=== PATIENT | female | born 2000 | race Caucasian/White ===

== ENCOUNTER 2020-06-04 13:32 | Emergency (ER) | payer OTHER ==
--- NOTE | 2020-06-04 14:18 | EDM.PDOC ---
ED HPI GENERAL MEDICAL PROBLEM - General Chief Complaint: Flank Pain Stated Complaint: PAIN ON LEFT FLANK SIDE Time Seen by Provider: 06/04/20 14:00 - History of Present Illness INITIAL COMMENTS - FREE TEXT/NARRATIVE: 20-year-old female no major significant past medical history presenting with on and off severe left flank pain that she says has been going on for the last 2 months. She initially thought it was menstrual cramps but the pain came again today and she has not had a menstrual cycle in the last 2 weeks. Patient does not have a history of abnormal menses her last menstrual cycle 2 weeks ago was normal for her. No fevers no chills small amount of hematuria today but no vaginal bleeding or discharge. No dysuria. No nausea or vomiting no frontal abdominal pain no radiation across the midline. No fevers no chills patient otherwise feels well and is asymptomatic at this time. Groin Pain Score (Numeric/FACES): 7 - Related Data Allergies Allergy/AdvReac Type Severity Reaction Status Date / Time Penicillins Allergy Airway Verified 06/04/20 14:07 Tightness Home Meds: Home Meds ClonazePAM [KlonoPIN] 0.5 mg PO DAILY 06/04/20 [History] Sulfamethoxazole/Trimethoprim [Bactrim Ds Tablet] 1 each PO BID 5 Days #10 tablet 06/04/20 [Rx] Venlafaxine [Effexor XR] 75 mg PO DAILY 06/04/20 [History] traZODone 50 mg PO DAILY 06/04/20 [History] Past Medical History - Past Health History Medical/Surgical History: Denies Medical/Surgical History Psychiatric History: Reports: Anxiety, Depression - Infectious Disease History Infectious Disease History: Reports: None ED ROS GENERAL - Review of Systems Review Of Systems: See Below Free Text/Narrative/Comment: General: No fever. Skin: No rash. Eyes: No vision problems. ENT: No sore throat. Neck: No neck stiffness. Respiratory: No shortness of breath. Cardiac: No chest pain. Gastrointestinal: No nausea, vomiting or abdominal pain. : Per HPI Musculoskeletal: No myalgias/arthralgias. Neurologic: No headache. ED EXAM, GENERAL - Physical Exam Exam: See Below Free Text/Narrative:: General Appearance: No acute distress, appears comfortable Skin: No rash HEENT: Normocephalic/atraumatic, sclera anicteric, mucous membranes moist Neck: Normal range of motion Chest and Lungs: Bilateral breath sounds, clear to auscultation Cardiovascular: Regular rate and rhythm, no murmur Abdomen: Soft, non-tender Back: Normal Musculoskeletal: No edema or tenderness Neurologic: Awake, alert, no obvious deficits, moving all extremities Psychiatric: Appropriate, cooperative Course - Vital Signs Last Recorded V/S: Last Vital Signs Temp 97 F 06/04/20 14:08 Pulse 54 L 06/04/20 14:30 Resp 15 06/04/20 14:30 BP 103/68 06/04/20 14:30 Pulse Ox 95 06/04/20 14:30 - Orders/Labs/Meds Orders: Active Orders 24 hr Category Date Time Status CULTURE URINE [RM] Stat Lab 06/04/20 14:02 Received Labs: Laboratory Tests 06/04/20 06/04/20 06/04/20 Range/Units 14:02 14:02 15:04 WBC 10.82 (4.0-11.0) K/uL RBC 4.63 (4.30-5.90) M/uL Hgb 14.0 (12.0-16.0) g/dL Hct 41.2 (36.0-46.0) % MCV 89.0 (80.0-98.0) fL MCH 30.2 (27.0-32.0) pg MCHC 34.0 (31.0-37.0) g/dL RDW Std Deviation 40.5 (28.0-62.0) fl RDW Coeff of Rahel 13 (11.0-15.0) % Plt Count 285 (150-400) K/uL MPV 10.60 (7.40-12.00) fL Neut % (Auto) 56.5 (48.0-80.0) % Lymph % (Auto) 30.2 (16.0-40.0) % Mayes % (Auto) 8.5 (0.0-15.0) % Eos % (Auto) 4.6 (0.0-7.0) % Baso % (Auto) 0.2 (0.0-1.5) % Neut # (Auto) 6.1 H (1.4-5.7) K/uL Lymph # (Auto) 3.3 H (0.6-2.4) K/uL Mayes # (Auto) 0.9 H (0.0-0.8) K/uL Eos # (Auto) 0.5 (0.0-0.7) K/uL Baso # (Auto) 0.0 (0.0-0.1) K/uL Nucleated RBC % 0.0 /100WBC Nucleated RBCs # 0 K/uL Sodium (136-145) mmol/L Potassium (3.5-5.1) mmol/L Chloride (98-107) mmol/L Carbon Dioxide (21.0-32.0) mmol/L BUN (7.0-18.0) mg/dL Creatinine (0.6-1.0) mg/dL Est Cr Clr Drug Dosing mL/min Estimated GFR (MDRD) ml/min Glucose (74-106) mg/dL Calcium (8.5-10.1) mg/dL Total Bilirubin (0.2-1.0) mg/dL AST (15-37) IU/L ALT (14-63) IU/L Alkaline Phosphatase (46-116) U/L Total Protein (6.4-8.2) g/dL Albumin (3.4-5.0) g/dL Globulin (2.6-4.0) g/dL Albumin/Globulin Ratio (0.9-1.6) Urine Color YELLOW Urine Appearance SLT CLOUDY Urine pH 6.0 (5.0-8.0) Ur Specific [facility] >= 1.030 (1.001-1.035) Urine Protein NEGATIVE (NEGATIVE) mg/dL Urine Glucose (UA) NEGATIVE (NEGATIVE) mg/dL Urine Ketones NEGATIVE (NEGATIVE) mg/dL Urine Occult Blood TRACE-INTACT H (NEGATIVE) Urine Nitrite NEGATIVE (NEGATIVE) Urine Bilirubin NEGATIVE (NEGATIVE) Urine Urobilinogen 0.2 (<2.0) EU/dL Ur Leukocyte Esterase MODERATE H (NEGATIVE) Urine RBC 1-2 (0-2/HPF) Urine WBC 70-80 (0-5/HPF) Ur Epithelial Cells FEW (NONE-FEW) Urine Bacteria 1+ H (NEGATIVE) Urine HCG, Qual NEGATIVE (NEGATIVE) 06/04/20 Range/Units 15:04 WBC (4.0-11.0) K/uL RBC (4.30-5.90) M/uL Hgb (12.0-16.0) g/dL Hct (36.0-46.0) % MCV (80.0-98.0) fL MCH (27.0-32.0) pg MCHC (31.0-37.0) g/dL RDW Std Deviation (28.0-62.0) fl RDW Coeff of Rahel (11.0-15.0) % Plt Count (150-400) K/uL MPV (7.40-12.00) fL Neut % (Auto) (48.0-80.0) % Lymph % (Auto) (16.0-40.0) % Mayes % (Auto) (0.0-15.0) % Eos % (Auto) (0.0-7.0) % Baso % (Auto) (0.0-1.5) % Neut # (Auto) (1.4-5.7) K/uL Lymph # (Auto) (0.6-2.4) K/uL Mayes # (Auto) (0.0-0.8) K/uL Eos # (Auto) (0.0-0.7) K/uL Baso # (Auto) (0.0-0.1) K/uL Nucleated RBC % /100WBC Nucleated RBCs # K/uL Sodium 142 (136-145) mmol/L Potassium 4.2 (3.5-5.1) mmol/L Chloride 107 (98-107) mmol/L Carbon Dioxide 29.0 (21.0-32.0) mmol/L BUN 8 (7.0-18.0) mg/dL Creatinine 0.7 (0.6-1.0) mg/dL Est Cr Clr Drug Dosing 92.08 mL/min Estimated GFR (MDRD) > 60.0 ml/min Glucose 98 (74-106) mg/dL Calcium 8.6 (8.5-10.1) mg/dL Total Bilirubin 0.4 (0.2-1.0) mg/dL AST 11 L (15-37) IU/L ALT 17 (14-63) IU/L Alkaline Phosphatase 94 (46-116) U/L Total Protein 7.4 (6.4-8.2) g/dL Albumin 3.7 (3.4-5.0) g/dL Globulin 3.7 (2.6-4.0) g/dL Albumin/Globulin Ratio 1.0 (0.9-1.6) Urine Color Urine Appearance Urine pH (5.0-8.0) Ur Specific [facility] (1.001-1.035) Urine Protein (NEGATIVE) mg/dL Urine Glucose (UA) (NEGATIVE) mg/dL Urine Ketones (NEGATIVE) mg/dL Urine Occult Blood (NEGATIVE) Urine Nitrite (NEGATIVE) Urine Bilirubin (NEGATIVE) Urine Urobilinogen (<2.0) EU/dL Ur Leukocyte Esterase (NEGATIVE) Urine RBC (0-2/HPF) Urine WBC (0-5/HPF) Ur Epithelial Cells (NONE-FEW) Urine Bacteria (NEGATIVE) Urine HCG, Qual (NEGATIVE) Departure - Departure Time of Disposition: 15:49 Disposition: Home, Self-Care 01 Condition: Good Clinical Impression: Flank pain, UTI (urinary tract infection) - Discharge Information *PRESCRIPTION DRUG MONITORING PROGRAM REVIEWED*: Not Applicable *COPY OF PRESCRIPTION DRUG MONITORING REPORT IN PATIENT SUKHI: Not Applicable Prescriptions: Sulfamethoxazole/Trimethoprim [Bactrim Ds Tablet] 1 each PO BID 5 Days #10 tablet Instructions: Flank Pain, Adult, Urinary Tract Infection, Adult Forms: ED Department Discharge Additional Instructions: Please be sure you can pleat the entire course of antibiotic. You can take Tylenol or ibuprofen as you need to for the flank pain. If you have severe pain that does not go away develop a fever or any other new symptoms that concern you, then please return to the ER. Otherwise please follow-up in the primary care clinic as scheduled. The following information is given to patients seen in the emergency department who are being discharged to home. This information is to outline your options for follow-up care. We provide all patients seen in our emergency department with a follow-up referral. The need for follow-up, as well as the timing and circumstances, are variable depending upon the specifics of your emergency department visit. If you don't have a primary care physician on staff, we will provide you with a referral. We always advise you to contact your personal physician following an emergency department visit to inform them of the circumstance of the visit and for follow-up with them and/or the need for any referrals to a consulting specialist. The emergency department will also refer you to a specialist when appropriate. This referral assures that you have the opportunity for follow-up care with a specialist. All of these measure are taken in an effort to provide you with optimal care, which includes your follow-up. Under all circumstances we always encourage you to contact your private physician who remains a resource for coordinating your care. When calling for follow-up care, please make the office aware that this follow-up is from your recent emergency room visit. If for any reason you are refused follow-up, please contact the [facility] Emergency Department at and asked to speak to the emergency department charge nurse. Sepsis Event Note (ED) - Evaluation Sepsis Screening Result: No Definite Risk - Focused Exam Vital Signs: Vital Signs Temp Pulse Resp BP Pulse Ox 06/04/20 14:30 54 L 15 103/68 95 06/04/20 14:08 97 F 60 16 94/48 L 99 - Assessment/Plan Assessment:: 20-year-old female presenting with signs and symptoms most consistent with ovarian cyst could also consider renal colic less likely UTI no anterior symptoms that would suggest diverticulitis or appendicitis no fevers or chills. Abdomen exam is benign. Given constellation of symptoms and differential diagnosis CBC CMP urinalysis urine and CT abdomen pelvis without contrast been ordered. Patient comfortable at this time I do not have concern for active ovarian torsion. Ectopic considered but again patient with out pain at this time and urine pending. Further eval and final disposition pending results of above. 1550: Patient's pain currently 6 out of 10. test negative will give a dose of Toradol. Patient CT scan is unremarkable. Patient does have a urinary tract infection given her allergy profile will treat with 5 days of Bactrim. We discussed that I do not believe the urinary tract infection explains the prolonged course of symptoms. Patient has a follow-up appointment with her primary care doctor scheduled for 4 days from now. Patient request a note for work we will give her off today and tomorrow. Patient will follow up with her primary care doctor. Return precaution discussed and understood.
--- NOTE | 2020-06-04 15:20 | CT ---
HISTORY: Left flank pain. TECHNIQUE: Noncontrast CT of the abdomen and pelvis. COMPARISON: No prior. FINDINGS: No focal liver parenchymal abnormality. Gallbladder does not appear excessively distended. Spleen size within normal limits. Adrenal glands normal. No focal pancreatic abnormality. No hydronephrosis. No perinephric fluid. No renal calculus. No renal mass. Urinary bladder is nondistended. Left lower pelvic calcification on image #145 may reflect a small phlebolith. - No small bowel obstruction. No appendicitis. No diverticulitis. No fluid collection or free air. - No abdominal aortic aneurysm. - No infiltrate within the lung bases nor pleural effusion. - No acute bony abnormality. IMPRESSION: 1. No identified cause of the patient`s symptoms. 2. No urinary calculi or hydronephrosis. 3. No bowel obstruction, appendicitis or diverticulitis. Please note that all CT scans at this facility use dose modulation, iterative reconstruction, and/or weight-based dosing when appropriate to reduce radiation dose to as low as reasonably achievable. Dictated by Kelvin Diez MD @ Jun 04 2020 3:18PM Signed by Dr. Kelvin Diez @ Jun 04 2020 3:18PM
[2020-06-04 15:42] LABS: BLOOD UREA NITROGEN,BUN 8 mg/dL (7.0-18.0); CHLORIDE,CL 107 mmol/L (98-107); GLUCOSE RANDOM 98 mg/dL (74-106); POTASSIUM,K 4.2 mmol/L (3.5-5.1); SODIUM,NA 142 mmol/L (136-145)
== END 2020-06-04 16:00 | disposition home or self-care (01) ==
LOC: MW.ED 13:32
DX: N39.0 Urinary tract infection, site not specified (principal); Z88.0 Allergy status to penicillin; Z79.899 Other long term (current) drug therapy
CPT/HCPCS: 36415; 74176; 74176-26; 80053; 81001; 81025; 85025; 87086; 87088; 87186; 99283; 99284-25